=== PATIENT | male | born 1955 | race African-American/Black ===

== ENCOUNTER 2020-08-14 23:39 | Inpatient (IN) ==
[2020-08-14] MEDS ORDERED: Morphine Sulfate 2 MG/ML SYRINGE IVP ONE (23:46)
[2020-08-15 00:01] LABS: Basophils # 0.1 K/mcL (0.0-0.2); Basophils % 0.4 %; Eosinophils # 0.2 K/mcL (0.0-0.6); Eosinophils % 0.8 %; Hematocrit 39.6 % (37.5-50.1); Hemoglobin 13.4 g/dL (12.9-16.9); Immature Granulocytes % 0.4 % (0-4); Lymphocytes # 9.4 K/mcL (0.6-4.6); Lymphocytes % 38.3 %; Mean Corpuscular HGB Conc 33.8 g/dL (31.6-35.5); Mean Corpuscular Hemoglobin 31.2 pg (28.0-33.3); Mean Corpuscular Volume 92.3 fL (83.0-100.0); Mean Platelet Volume 8.6 fL (9.4-12.4); Monocytes # 1.6 K/mcL (0.0-1.3); Monocytes % 6.6 %; Neutrophils # 13.1 K/mcL (1.6-8.9); Platelet Count 326 K/mcL (140-400); Red Blood Count 4.29 M/mcL (4.19-5.50); Red Cell Distribution Width 12.5 % (11.5-14.5); Segmented Neutrophils % 53.5 %; White Blood Count 24.5 K/mcL (4.3-11.1)
[2020-08-15 00:05] LABS: Prothrombin Time 11.5 Seconds (9.4-12.1)
[2020-08-15 00:09] LABS: Activated Partial Thrombo Time 24.2 Seconds (26.0-36.0)
[2020-08-15] MEDS ORDERED: Heparin 1,000 UNITS/500 mL 500 ML ONE (00:09)
[2020-08-15] MEDS ORDERED: ISOVUE-370 200 ML INFUS..BTL ONE (00:09)
[2020-08-15] MEDS ORDERED: 0.9 % Sodium Chloride 2,000 ML ONE (00:09)
[2020-08-15] MEDS ORDERED: *HR* Heparin 10,000 UNIT/10 ML VIAL ONE (00:09)
[2020-08-15] MEDS ORDERED: *HR* Midazolam HCl 2 MG/2 ML VIAL ONE ×2 (00:09→00:37)
[2020-08-15] MEDS ORDERED: *HR* FentaNYL (PF) 100 MCG/2 ML VIAL ONE (00:09)
[2020-08-15] MEDS ORDERED: Nitroglycerin 1,000 MCG/10 ML VIAL IV ONE (00:10)
[2020-08-15] MEDS ORDERED: *HR* Heparin 5,000 UNIT/ML VIAL IVP ONE (00:14)
[2020-08-15] MEDS ORDERED: *HR* Ticagrelor 90 MG TABLET PO ONE (00:14)
[2020-08-15] MEDS ORDERED: *HR* Heparin 5,000 UNIT/ML VIAL IVP PRN ×2 (00:14)
[2020-08-15] MEDS ORDERED: Heparin 25,000UNIT/250ML 1/2NS 25,000 UNIT/250 ML IV.SOLN IVC SCH (00:15)
[2020-08-15 00:22] LABS: BUN/Creatinine Ratio 16 (6-26); Blood Urea Nitrogen 15 mg/dL (8-23); Carbon Dioxide 21 mEq/L (23-29); Chloride 106 mEq/L (98-107); Glucose 151 mg/dL (70-105); Magnesium 2.1 mg/dL (1.6-2.6); Osmolality,Calculated 294 (280-300); Potassium 3.1 mEq/L (3.5-5.1); Sodium 140 mEq/L (136-145); eGFR For African Americans > 60 (> 60); eGFR For Non-African Americans > 60 (> 60)
[2020-08-15 00:26] LABS: Troponin I < 0.03 ng/mL (< 0.04)
[2020-08-15 00:27] LABS: Platelet Estimate Normal (Normal); Reactive Lymphocytes Present (Not Present)
[2020-08-15] MEDS ORDERED: *HR* Atropine Sulfate 1 MG/10 ML SYRINGE ONE (00:38)
[2020-08-15 00:46] LABS: Heparin anti-factor XA UFH < 0.04 IU/mL (0.30-0.70)
[2020-08-15 00:47] LABS: Prothrombin Time 11.3 Seconds (9.4-12.1)
[2020-08-15] MEDS ORDERED: Perflutren Lipid Microsphere 1.3 ML in 0.9 % Sodium Chloride 8.7 ML IVP PRN (01:17)
[2020-08-15] MEDS ORDERED: Dextrose Gel 15 GM/37.5 ML TUBE PO PRN ×2 (01:47)
[2020-08-15] MEDS ORDERED: D5% in Water 1,000 ML IVC PRN (01:47)
[2020-08-15] MEDS ORDERED: *HR* Dextrose 50 % in Water (Vial) 50 ML VIAL IVP PRN (01:47)
[2020-08-15] MEDS: 0.9 % Sodium Chloride 1,000 ML IVC SCH ×3 (01:54→19:46)
[2020-08-15 05:51] LABS: Basophils # 0.1 K/mcL (0.0-0.2); Basophils % 0.3 %; Eosinophils % 0.1 %; Hematocrit 37.4 % (37.5-50.1); Hemoglobin 12.6 g/dL (12.9-16.9); Immature Granulocytes % 0.4 % (0-4); Lymphocytes # 1.9 K/mcL (0.6-4.6); Lymphocytes % 10.1 %; Mean Corpuscular HGB Conc 33.7 g/dL (31.6-35.5); Mean Corpuscular Hemoglobin 30.5 pg (28.0-33.3); Mean Corpuscular Volume 90.6 fL (83.0-100.0); Mean Platelet Volume 8.6 fL (9.4-12.4); Monocytes # 0.6 K/mcL (0.0-1.3); Monocytes % 2.9 %; Neutrophils # 16.6 K/mcL (1.6-8.9); Platelet Count 271 K/mcL (140-400); Red Blood Count 4.13 M/mcL (4.19-5.50); Red Cell Distribution Width 12.3 % (11.5-14.5); Segmented Neutrophils % 86.2 %; White Blood Count 19.2 K/mcL (4.3-11.1)
[2020-08-15 06:28] LABS: BUN/Creatinine Ratio 18 (6-26); Blood Urea Nitrogen 15 mg/dL (8-23); Calcium 9.1 mg/dL (8.6-10.3); Carbon Dioxide 25 mEq/L (23-29); Chloride 107 mEq/L (98-107); Chol/HDL Ratio 2.9 (0-4.9); Cholesterol 129 mg/dL (< 200); Glucose 130 mg/dL (70-105); HDL Cholesterol 45 mg/dL (40-59); LDL Cholesterol,Calculated 66 mg/dL (< 100); Osmolality,Calculated 293 (280-300); Potassium 4.1 mEq/L (3.5-5.1); Sodium 140 mEq/L (136-145); Triglycerides 90 mg/dL (< 150); Troponin I 3.12 ng/mL (< 0.04); eGFR For African Americans > 60 (> 60); eGFR For Non-African Americans > 60 (> 60)
[2020-08-15] MEDS: Insulin LISPRO 300 UNITS/3 ML VIAL SUBQ SCH ×3 (06:32→17:30)
[2020-08-15 07:25] LABS: Estimated Average Glucose 126 mg/dl
[2020-08-15] MEDS: Aspirin 81 MG TAB.CHEW PO SCH (07:51)
[2020-08-15] MEDS: *HR* Ticagrelor 90 MG TABLET PO SCH ×2 (07:52→19:45)
[2020-08-15] MEDS ORDERED: Nicotine 21 MG PATCH.TD24 TD SCH (09:00)
[2020-08-15] MEDS ORDERED: lisinopriL 5 MG TABLET PO SCH (09:00)
[2020-08-15] MEDS ORDERED: *HR* OxyCODONE Immed Rel 15 MG TABLET PO PRN (09:24)
[2020-08-15] MEDS: Finasteride 5 MG TABLET PO SCH (10:59)
[2020-08-15] MEDS: Venlafaxine XR (24 HR) 75 MG CAP.ER.24H PO SCH (10:59)
[2020-08-15] MEDS: Isosorbide MONOnitrate (24 HR) 30 MG TAB.ER.24H PO SCH (10:59)
[2020-08-15] MEDS: *HR* OxyCODONE Immed Rel 15 MG TABLET PO PRN ×2 (15:31→19:45)
[2020-08-15] MEDS: *HR* Heparin 5,000 UNIT/ML VIAL SQ SCH (17:34)
[2020-08-15] MEDS ORDERED: Insulin LISPRO 300 UNITS/3 ML VIAL SUBQ SCH (21:00)
[2020-08-15] MEDS ORDERED: Latanoprost 2.5 ML BOTTLE BOTH EYES SCH (23:45)
[2020-08-16] MEDS: *HR* Heparin 5,000 UNIT/ML VIAL SQ SCH (04:56)
[2020-08-16] MEDS: *HR* OxyCODONE Immed Rel 15 MG TABLET PO PRN ×2 (04:56→11:59)
[2020-08-16] MEDS: 0.9 % Sodium Chloride 1,000 ML IVC SCH (04:57)
[2020-08-16 06:43] LABS: Basophils % 0.3 %; Eosinophils # 0.1 K/mcL (0.0-0.6); Eosinophils % 0.4 %; Hematocrit 39.5 % (37.5-50.1); Hemoglobin 13.5 g/dL (12.9-16.9); Immature Granulocytes % 0.3 % (0-4); Mean Corpuscular HGB Conc 34.2 g/dL (31.6-35.5); Mean Corpuscular Hemoglobin 30.8 pg (28.0-33.3); Mean Corpuscular Volume 90.2 fL (83.0-100.0); Mean Platelet Volume 8.7 fL (9.4-12.4); Monocytes % 6.9 %; Neutrophils # 10.7 K/mcL (1.6-8.9); Platelet Count 264 K/mcL (140-400); Red Blood Count 4.38 M/mcL (4.19-5.50); Red Cell Distribution Width 12.3 % (11.5-14.5); Segmented Neutrophils % 72.1 %; White Blood Count 14.9 K/mcL (4.3-11.1)
[2020-08-16] MEDS ORDERED: Insulin LISPRO 300 UNITS/3 ML VIAL SUBQ SCH ×2 (07:30→21:00)
[2020-08-16 07:31] LABS: BUN/Creatinine Ratio 13 (6-26); Blood Urea Nitrogen 9 mg/dL (8-23); Calcium 9.4 mg/dL (8.6-10.3); Carbon Dioxide 25 mEq/L (23-29); Chloride 108 mEq/L (98-107); Glucose 114 mg/dL (70-105); Osmolality,Calculated 288 (280-300); Potassium 3.8 mEq/L (3.5-5.1); Sodium 139 mEq/L (136-145); eGFR For African Americans > 60 (> 60); eGFR For Non-African Americans > 60 (> 60)
[2020-08-16] MEDS: *HR* Ticagrelor 90 MG TABLET PO SCH ×2 (09:29→20:20)
[2020-08-16] MEDS: Venlafaxine XR (24 HR) 75 MG CAP.ER.24H PO SCH (09:29)
[2020-08-16] MEDS: Finasteride 5 MG TABLET PO SCH (09:29)
[2020-08-16] MEDS: Isosorbide MONOnitrate (24 HR) 30 MG TAB.ER.24H PO SCH (09:30)
[2020-08-16] MEDS: Aspirin 81 MG TAB.CHEW PO SCH (09:30)
[2020-08-16] MEDS ORDERED: Perflutren Lipid Microsphere 1.3 ML in 0.9 % Sodium Chloride 8.7 ML IVP PRN (10:36)
[2020-08-16] MEDS ORDERED: D5% in Water 1,000 ML IVC PRN (10:36)
[2020-08-16] MEDS ORDERED: *HR* Dextrose 50 % in Water (Vial) 50 ML VIAL IVP PRN (10:36)
[2020-08-16] MEDS ORDERED: Dextrose Gel 15 GM/37.5 ML TUBE PO PRN ×2 (10:36)
[2020-08-16 11:59] LABS: Troponin I 3.21 ng/mL (< 0.04)
[2020-08-16] MEDS: Insulin LISPRO 300 UNITS/3 ML VIAL SUBQ SCH (12:00)
[2020-08-16] MEDS: Gabapentin 100 MG CAPSULE PO SCH ×2 (14:11→20:20)
[2020-08-16] MEDS ORDERED: Latanoprost 2.5 ML BOTTLE BOTH EYES SCH (21:00)
[2020-08-17] MEDS: *HR* OxyCODONE Immed Rel 15 MG TABLET PO PRN ×2 (00:14→09:19)
[2020-08-17] MEDS: 0.9 % Sodium Chloride 1,000 ML IVC SCH ×2 (07:50→09:03)
[2020-08-17] MEDS: *HR* Heparin 5,000 UNIT/ML VIAL SQ SCH ×2 (07:52→09:13)
[2020-08-17] MEDS: Insulin LISPRO 300 UNITS/3 ML VIAL SUBQ SCH ×2 (07:52→09:14)
[2020-08-17] MEDS ORDERED: Isosorbide MONOnitrate (24 HR) 30 MG TAB.ER.24H PO SCH (09:00)
[2020-08-17] MEDS ORDERED: Finasteride 5 MG TABLET PO SCH (09:00)
[2020-08-17] MEDS ORDERED: Aspirin 81 MG TAB.CHEW PO SCH (09:00)
[2020-08-17] MEDS ORDERED: Venlafaxine XR (24 HR) 75 MG CAP.ER.24H PO SCH (09:00)
[2020-08-17] MEDS ORDERED: Nicotine 21 MG PATCH.TD24 TD SCH (09:00)
[2020-08-17] MEDS: Gabapentin 100 MG CAPSULE PO SCH (09:19)
[2020-08-17] MEDS: *HR* Ticagrelor 90 MG TABLET PO SCH (09:20)
[2020-08-17 09:54] VITALS: BP 117/85
== END 2020-08-17 11:40 | disposition home or self-care (01) | DRG 246 ==
LOC: ICNU 23:39 → EMEROOARM 23:39 → ICNU 08-15 00:20 → OBSVTOIN 08-15 01:17
PROVIDERS: ADMIT Internal Medicine; ATTEND Internal Medicine